=== PATIENT | male | born 1995 | race Caucasian/White ===

== ENCOUNTER 2016-07-24 12:23 | Emergency (ER) | payer SELFPAY ==
[~2016-07-24] VITALS: Ht 188 cm; Wt 75.0 kg
[~2016-07-24 12:23] MED LIST: PREDNISONE20 MG PO; PROAIR HFA8.5 GM IH; VICODIN 5-3001 EACH PO; ZITHROMAX250 MG PO
[2016-07-24 13:04] LABS: BASOPHIL COUNT 0.1 K/uL (0-0.1); EOSINOPHIL (%) 1.7 % (0-5); EOSINOPHIL COUNT 0.1 K/uL (0-0.3); HEMATOCRIT 43.3 % (38.0-50.0); IMMATURE GRANULOCYTE (%) 0.3 % (0.0-0.7); INSTRUMENT ABS NEUTROPHIL CT 4.4 K/uL; LYMPHOCYTE COUNT 1.9 K/uL (1.0-2.8); MCH 30.5 PG (29.0-34.0); MCHC 34.2 G/DL (30.0-36.0); MCV 89.3 FL (86-99); MEAN PLAT.VOLUME 10.8 uM^3 (9.0-12.4); MONOCYTE (%) 6.1 % (3-12); MONOCYTE COUNT 0.4 K/uL (0-0.8); NEUTROPHIL (%) 63.3 % (45-76); NEUTROPHIL COUNT 4.4 K/uL (1.8-6.4); PLATELET COUNT 199 K/uL (156-360); RBC DIS.WIDTH-CV 12.2 % (11.8-14.6); RED BLOOD COUNT 4.85 M/uL (4.00-5.50); WHITE BLOOD COUNT 6.9 K/uL (4.1-10.2)
[2016-07-24 13:16] LABS: CHLORIDE 108 mEq/L (99-109); POTASSIUM 3.7 mEq/L (3.7-5.4); SODIUM 141 mEq/L (136-147)
[2016-07-24 13:18] LABS: GLUCOSE 92 mg/dL (70-99)
[2016-07-24 13:19] LABS: ANION GAP 11 MEQ/L (2-14)
[2016-07-24 13:21] LABS: SERUM ETHYL ALCOHOL 120 mg/dL
[2016-07-24 13:22] LABS: GFR ESTIMATE (CALCULATED) > 59 mL/min/
[2016-07-24 13:23] LABS: UREA NITROGEN (BUN) 11 mg/dL (9-23)
[2016-07-24 14:09] LABS: ADD MIUA? NO; BILIRUBIN NEGATIVE; BLOOD NEGATIVE; COLOR STRAW ((YELLOW)); GLUCOSE (STRIP) NEGATIVE; KETONES NEGATIVE; LEUKOCYTES NEGATIVE; NITRITE NEGATIVE; PROTEIN (STRIP) NEGATIVE; SPECIFIC GRAVITY 1.008 (1.000-1.030); UROBILINOGEN 0.2 MG/DL (0.2-1.0)
[2016-07-24 14:24] LABS: ADD MEDTOX COMMENT Y; AMPHETAMINE NEGATIVE (500 ng/mL); BARBITURATES NEGATIVE (200 ng/mL); BENZODIAZEPINES NEGATIVE (150 ng/mL); COCAINE PRESUMPTIVE POSITIVE (150 ng/mL); INTERNAL CONTROLS VALID? YES; METHADONE NEGATIVE (200 ng/mL); METHAMPHETAMINE NEGATIVE (500 ng/mL); OPIATES (MORPHINE) PRESUMPTIVE POSITIVE (100 ng/mL); OXYCODONE NEGATIVE (100 ng/mL); PHENCYCLIDINE NEGATIVE (25 ng/mL); PROPOXYPHENE NEGATIVE (300 ng/mL); THC CANNABINOIDS PRESUMPTIVE POSITIVE (50 ng/mL); TRICYCLIC ANTIDEPRESSANTS NEGATIVE (300 ng/mL)
[2016-07-24] MEDS ORDERED: ZITHROMAX Z-PA250 MG PO (15:19)
[2016-07-24 15:30] VITALS: BP 110/69
== END 2016-07-24 15:32 | disposition home or self-care (01) ==
LOC: EME 12:23
PROVIDERS: Emergency Medicine
DX: T40.1X1A Poisoning by heroin, accidental (unintentional), initial encounter (principal); R40.20 Unspecified coma; F11.10 Opioid abuse, uncomplicated; J20.9 Acute bronchitis, unspecified; F17.200 Nicotine dependence, unspecified, uncomplicated
CPT/HCPCS: 80048; 81003; 84999; 85025; 99281; 99284; G0480

== ENCOUNTER 2017-08-12 23:31 | Emergency (ER) | payer OTHER ==
[~2017-08-12] VITALS: Ht 157.5 cm; Wt 80.0 kg
[2017-08-12 23:31] VITALS: BP 130/81
[~2017-08-12 23:31] MED LIST changes: +ZITHROMAX Z-PA250 MG PO
== END 2017-08-13 00:47 | disposition home or self-care (01) ==
LOC: EME → TRA 23:31 → EDBD 23:31 → EME 23:31 → TRA 08-13 00:47
DX: S61.217A Laceration without foreign body of left little finger without damage to nail, initial encounter (principal); S61.512A Laceration without foreign body of left wrist, initial encounter; X99.1XXA Assault by knife, initial encounter; Z23 Encounter for immunization; F17.200 Nicotine dependence, unspecified, uncomplicated
CPT/HCPCS: 99281; 99284